=== PATIENT | female | born 1975 | race Two or more races ===

== ENCOUNTER 2022-12-16 15:55 | Emergency (ER) | payer MEDICAID, OTHER ==
[~2022-12-16] VITALS: Ht 165.1 cm; Wt 81.3 kg
[2022-12-16] MEDS ORDERED: KETOROLAC TROMETH 60MG/2ML VIAL IM ONE (17:30)
[2022-12-16] MEDS ORDERED: MORPHINE SULFATE INJ 2 MG/ml SYRG IM ONE (17:30)
[2022-12-16] MEDS ORDERED: ONDANSETRON ODT 4 MG TAB PO ONE (17:30)
[2022-12-16 20:12] VITALS: BP 91/68; PULSE 79; RESP 19; TEMP 98.4; O2SAT 98
== END 2022-12-16 20:27 | disposition home or self-care (01) ==
LOC: ER 15:55
DX: G89.29 Other chronic pain (principal); M25.561 Pain in right knee; M17.11 Unilateral primary osteoarthritis, right knee
CPT/HCPCS: 93971; 96372; 99285; J1885; Q0162